=== PATIENT | female | born 1975 | race Caucasian/White ===

== ENCOUNTER 2023-07-27 02:10 | Emergency (ER) | payer BC, SELFPAY ==
[2023-07-27 02:16] VITALS: BP 132/79; PULSE 63; TEMP 36.8; O2SAT 97; BMI 25.1
[2023-07-27] MEDS: TETRACAINE HCL 0.5% OP SOL 80 DROP/4 ML BOTTLE OP (02:47)
[2023-07-27] MEDS: FLUORESCEIN SODIUM 1 MG STRIP OP (02:47)
--- NOTE | 2023-07-27 02:48 | ED.EYEPROB1 ---
HPI - Eye Problem General Chief complaint: Eye Problems Stated complaint: eye pain Time Seen by Provider: 07/27/23 02:38 Source: patient Mode of arrival: walk-in Limitations: no limitations History of Present Illness HPI Narrative: working at [employer] and was cleaning when debris blew into her eyes. Rinsed eyes at work but still has sensation of something in the left eye. Normal vision. No other complaint Related Data Allergies Allergy/AdvReac Type Severity Reaction Status Date / Time No Known Drug Allergies Allergy Verified 07/27/23 02:15 Review of Systems ROS Status of ROS 10 or more systems reviewed and unremarkable except as noted in history and below Exam Constitutional Vital Signs, click to edit/add: Last Vital Signs Temp 98.3 F 07/27/23 02:16 Pulse 63 07/27/23 02:16 Resp 18 07/27/23 02:16 BP 132/79 07/27/23 02:16 Pulse Ox 97 07/27/23 02:16 O2 Del Method Room Air 07/27/23 02:16 Common normals: no apparent distress, average body habitus, oriented x3, no limitations, healthy appearing, alert and well nourished [facility] Common normals: normocephalic and head/scalp atraumatic Other: conjunctiva appear normal Eye Common normals: PERRL, EOMs intact bilaterally and conjunctivae normal Respiratory Common normals: normal respiratory effort and no retractions Cardio Common normals: regular rate, regular rhythm, S1 normal heart sound and S2 normal heart sound Extremity Common normals: normal to inspection and full ROM Neuro Common normals: oriented x3, CN's II-XII intact bilaterally, moves all extremities and no focal motor deficits Psych Appearance: grossly normal Course Vital Signs Vital signs: Vital Signs Temperature 98.3 F 07/27/23 02:16 Pulse Rate 63 07/27/23 02:16 Respiratory Rate 18 07/27/23 02:16 Blood Pressure 132/79 07/27/23 02:16 Pulse Oximetry 97 07/27/23 02:16 Oxygen Delivery Method Room Air 07/27/23 02:16 Temperature 98.3 F 07/27/23 02:16 Pulse Rate 63 07/27/23 02:16 Respiratory Rate 18 07/27/23 02:16 Blood Pressure 132/79 07/27/23 02:16 Pulse Oximetry 97 07/27/23 02:16 Oxygen Delivery Method Room Air 07/27/23 02:16 MDM - Eye Problem MDM Narrative Medical decision making narrative: presents complaining of possible FB in her left eye. Describes cleaning at work and debris getting into her eyes. Rinsed at work but still had sensation left eye. Eye inspected and no obvious FB. left upper lens inverted and no FB seen. Fluorescein instilled as well as tetracaine. No focal uptake of dye. Patient informed of working diagnosis of conjunctival irritation. Tobramycin eye drops instilled and patient discharged home Discharge Plan Discharge Stand Alone Forms: Portal Instructions Chief Complaint: Eye Problems Clinical Impression: Acute left eye pain Patient Disposition: Home, Self-Care Condition: Good Mode of Transportation: Private Vehicle Print Language: Bengali Instructions: Eye Pain (ED) Additional Instructions: instill 2 drops left eye every 4 hours while awake. have eye rechecked in 1 day Referrals: Physician,Non-Staff, MD [Primary Care Provider] - 1 week Discharge Date/Time: 07/27/23 03:15
[2023-07-27] MEDS: TOBRAMYCIN 0.3% OP SOL 100 DROP/5 ML BOTTLE OP (03:05)
== END 2023-07-27 03:15 | disposition home or self-care (01) ==
PROVIDERS: Emergency Provider Internal Medicine
DX: H57.12 Ocular pain, left eye (principal)
CPT/HCPCS: 99284

== ENCOUNTER 2023-08-05 15:29 | Outpatient (OUT) | payer BC, SELFPAY ==
--- NOTE | 2023-08-05 | XR_ITS ---
The [address] [address] Patient Name: PHUONG MAIN MRN: [id number] date: 1975 Sex: F Assigned Patient Location: [facility] Current Patient Location: Accession/Order Number: [id number] Exam Date: 08/05/2023 15:40 Report Date: 08/06/2023 07:53 At the request of: NON-STAFF PHYSICIAN Procedure: XR abdomen 1V EXAMINATION: XR abdomen 1V HISTORY: Possible kidney stone ; recurrent urinary tract infections, abdominal pain, hematuria COMPARISON: CT pelvis 10/06/2019 FINDINGS: KIDNEY/URETER - RIGHT: No visible renal or ureteral calcifications. KIDNEY/URETER - LEFT: Several small calcifications projecting over kidney, largest is 5 mm. PELVIS: 3 mm density within lower left pelvis along the expected course of distal ureter. BOWEL: No abnormal dilation or deviation. BONES: No acute abnormality. OTHER: Negative. No abnormal gaseous collections. XR/XR abdomen 1V IMPRESSION: 1. Left nephrolithiasis. 2. Possible 3 mm stone within distal left ureter. Consider follow-up radiographs or CT abdomen pelvis for further evaluation. Electronically authenticated by: JOSELINE GONZALEZ Date: 08/06/2023 07:53
== END 2023-08-05 15:30 | disposition home or self-care (01) ==
LOC: RAD 15:30
DX: R31.0 Gross hematuria (principal); N20.0 Calculus of kidney
CPT/HCPCS: 74018

== ENCOUNTER 2024-02-20 16:19 | Emergency (ER) | payer OTHER, BC, SELFPAY ==
[2024-02-20 16:30] VITALS: BP 143/73; PULSE 61; TEMP 36.6; O2SAT 97; BMI 23.9
--- NOTE | 2024-02-20 16:33 | XR_ITS ---
The [address] [address] Patient Name: PHUONG MAIN MRN: [id number] date: 1975 Sex: F Assigned Patient Location: ER Current Patient Location: Accession/Order Number: [id number] Exam Date: 02/20/2024 17:17 Report Date: 02/20/2024 19:13 At the request of: OREN KEEN Procedure: XR elbow RT min 3V PROCEDURE: XR elbow RT min 3V HISTORY: inflammation/pain COMPARISON: None. FINDINGS: BONES:No fracture, acute abnormality, or significant arthropathy. SOFT TISSUES:No visible soft tissue swelling. EFFUSION:None visible. OTHER: Negative. XR/XR elbow RT min 3V IMPRESSION: 1. No acute bone abnormality or appreciable degenerative changes. Electronically authenticated by: JOSELINE GONZALEZ Date: 02/20/2024 19:13
--- NOTE | 2024-02-20 18:05 | ED_ITS ---
HPI HPI - Extremity Injury (Upper) General Chief Complaint: Extremity Injury, Upper Stated Complaint: Upper INJURY Time Seen by Provider: 02/20/24 16:24 Source: patient Mode of arrival: walk-in Limitations: no limitations History of Present Illness HPI narrative: Patient is a 48-year-old female presents to the ER with concerns of right elbow pain. She is right-hand dominant, has been working her job for the last 2-1/2 years. 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 Patient states 2 days ago she noticed soreness in her right elbow, denies fall or injury. States symptoms worse with use. 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 Patient denies any fevers or chills. She appears in no distress at bedside but is intended to work tonight. Patient denies any pain to her neck, and denies any persistent paresthesias. MD complaint: injury to: Reports right Other Extremity Injury: Right: elbow Hand dominance: right Place: Reports work Severity: moderate Relieving factors: Reports rest Exacerbating factors: Reports movement of extremity Context: Reports other (Repetitive use right elbow. ) Related Data Previous Rx's ?Medication ?Instructions ?Recorded prednisone 20 mg tablet 40 mg (2 x 20 mg) PO DAILY 5 days 02/20/24 #10 tabs Allergies Allergy/AdvReac Type Severity Reaction Status Date / Time No Known Drug Allergies Allergy Verified 07/27/23 02:15 Opioid HPI Opioid Management Most Recent Pain and Opioid Data: Last Pain Scale 4 02/20/24 17:36 02/20/24 Review of Systems ROS Constitutional Denies: fever or chills Eyes Denies: change in vision Ears, nose, mouth, and throat Denies: throat pain or neck pain Cardiovascular Denies: chest pain Respiratory Denies: shortness of breath, cough or wheezing Gastrointestinal Denies: abdominal pain, nausea or vomiting Genitourinary Reports: other (hysterectomy); Denies: painful urination Musculoskeletal Reports: extremity pain and extremity swelling (right lateral elbow) Integumentary/Breast Denies: rash or itching Neurological Denies: headache Psychiatric Denies: anxiety Exam Narrative Exam Narrative: Nurse's notes and vital signs reviewed. Patient is not hypoxic. General: The patient appears well and in no apparent distress. Patient is resting comfortably on cart. Skin: Warm, dry, no pallor noted. Head: Normocephalic, atraumatic Eye: Normal conjunctiva Respiratory: Patient is in no distress Musculoskeletal: The right elbow inspected with no obvious deformity. There was mild lateral epicondyle swelling noted. The patient had full range of motion despite pain. The patient had tenderness noted on the lateral epicondyle, no pain to olecranon, medial epicondyle or forearm. Tenderness with resisted supination, tenderness with wrist extension and tenderness with isolated middle finger extension. She denies pain with resisted wrist flexion. The patient had no tenderness in the anatomical snuff box. The patient had no pain with axial loading of the thumb. Pulses are intact at brachial and radial 2+. There was no deficit at the shoulder. The patient has normal capillary refill to all distal digits. The patient has no evidence of cyanosis or mottling. The patient is able to flex and extend all digits without difficulty. Neurological: A&O x4, normal sensory, normal motor Psychiatric: Cooperative Constitutional Vital Signs, click to edit/add: Last Vital Signs Temp 97.9 F 02/20/24 16:30 Pulse 61 02/20/24 16:30 Resp 18 02/20/24 16:30 BP 143/73 H 02/20/24 16:30 Pulse Ox 97 02/20/24 16:30 O2 Del Method Room Air 02/20/24 16:30 Course Vital Signs Vital signs: Vital Signs Temperature 97.9 F 02/20/24 16:30 Pulse Rate 61 02/20/24 16:30 Respiratory Rate 18 02/20/24 16:30 Blood Pressure 143/73 H 02/20/24 16:30 Pulse Oximetry 97 02/20/24 16:30 Oxygen Delivery Method Room Air 02/20/24 16:30 Temperature 97.9 F 02/20/24 16:30 Pulse Rate 61 02/20/24 16:30 Respiratory Rate 18 02/20/24 16:30 Blood Pressure 143/73 H 02/20/24 16:30 Pulse Oximetry 97 02/20/24 16:30 Oxygen Delivery Method Room Air 02/20/24 16:30 MDM - Extremity Injury (Upper) MDM Narrative Medical decision making narrative: Patient presents with atraumatic right lateral elbow pain concerning for lateral epicondylitis or tennis elbow. We discussed symptom onset, repetition and her job. She denies any injury or trauma. A 3 view right elbow x-ray was performed here, preliminary read without evidence of fracture. No significant spurring. Normal alignment. Radiologist interpretation is pending. 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 Patient will need to follow-up with occupational medicine clinic for reevaluation and ongoing adjustments to her restrictions and possible therapy. Patient thankful had no further concerns or questions. The patient is to followup with occupational medicine clinic in next 2-3 days or to return to the emergency department should any of the signs or symptoms worsen or new symptoms develop. Patient had questions answered. The patient agrees with the following Diagnosis and Treatment plan and the patient will be discharged home. Discharge Plan Discharge Chief Complaint: Extremity Injury, Upper Clinical Impression: Elbow pain, right, Epicondylitis, lateral (tennis elbow) Patient Disposition: Home, Self-Care Time of Disposition Decision: 18:07 Condition: Good Prescriptions / Home Meds: New prednisone 20 mg tablet 40 mg PO DAILY 5 Days Qty: 10 0RF Print Language: Estonian Instructions: Tennis Elbow (ED) Additional Instructions: Please contact Occupational health clinic for follow up this week. Restrictions- No lifting pushing or pulling with right arm pending follow up. Referrals: RADHA PISANO [Primary Care Provider] - 1 week
[2024-02-20] MEDS: PREDNISONE 20 MG TABLET 40 MG PO (18:18)
== END 2024-02-20 18:21 | disposition home or self-care (01) ==
PROVIDERS: Emergency Provider Emergency Medicine; PCP Family Medicine
DX: M77.11 Lateral epicondylitis, right elbow (principal); M25.521 Pain in right elbow
CPT/HCPCS: 73080; 99283; J7512